=== PATIENT | female | born 1960 | race Caucasian/White ===

== ENCOUNTER 2017-08-06 12:07 | Emergency (ER) | payer OTHER ==
[~2017-08-06] VITALS: Ht 162.6 cm; Wt 66.0 kg
[~2017-08-06 12:07] MED LIST: TURM450C PO; VITA100T65 PO
[2017-08-06 12:08] VITALS: BP 165/102; PULSE 107; RESP 20; TEMP 98.2; O2SAT 98
[2017-08-06] MEDS ORDERED: ARGI500T PO (12:30)
[2017-08-06] MEDS ORDERED: DIAZ5 PO (12:53)
--- NOTE | 2017-08-06 12:54 | PD ---
HPI Chief Complaint: Pain: Acute or Chronic Time Seen by Provider: 12:40 Travel History International Travel<30 days: No Contact w/Intl Traveler<30days: No Traveled to known affect area: No History of Present Illness HPI Is a 57 year-old woman presents to the emergency department complaining of left shoulder pain. She states over the past 2 days or so she's got pain and tightness in her left shoulder, left trap, is unable to lift her arm above her head. She's recently completed treatment for breast cancer on the left side with a left axillary node dissection, and chemotherapy through a port in her left chest. She completed her last chemotherapy therapy several months ago and is due to be released. She otherwise has been feeling generally well and healthy. She denies having previous similar problems. No recent injury. No other complaints. History Past Medical History Narrative Medical Breast cancer Spina bifida Tetanus Vaccination: > 5 Years Social History Alcohol Use: No Tobacco Use: Yes (2 PACK DAILY) Allergies-Medications (Allergen,Severity, Reaction): Coded Allergies: No Known Allergies (Verified Adverse Reaction, Unknown, 08/06/17) Reported Meds & Prescriptions Reported Meds & Active Scripts Active Reported Arginine 500 Mg Tab 500 Mg PO DAILY Review of Systems Except as stated in HPI: all other systems reviewed are Neg Physical Exam Narrative GENERAL: The 57 year-old woman, no acute distress. SKIN: Warm and dry. CARDIOVASCULAR: Warm and well perfused. RESPIRATORY: Normal rate and effort. MUSCULOSKELETAL: Grossly normal appearance of the left shoulder. There is no obvious swelling deformity or ecchymosis or bruising. She has pain with any range of motion of the above 80 and forward flexion or abduction. She has pain with passive range of motion as well. Distal strength is full and equal. Distal extremities neurovascularly intact. She is a lot of tenderness and pain to palpation of the left trapezius. NEUROLOGICAL: Awake and alert. No gross deficits. Data Data Last Documented VS Vital Signs Date Time Temp Pulse Resp B/P (MAP) Pulse Ox O2 Delivery O2 Flow Rate FiO2 08/06/17 12:08 98.2 107 20 165/102 (123) 98 Room Air Orders Orders Chest, Single Ap (08/06/17 ) Shoulder, Complete (>2vws) (08/06/17 ) MDM Medical Decision Making Medical Screen Exam Complete: Yes Emergency Medical Condition: Yes Differential Diagnosis Rotator cuff injury, trapezius strain or sprain, occult trauma, other Narrative Course Medical decision making INITIAL cause a 57 year-old woman presents to the emergency department complaining of left shoulder pain. She is a lot of tenderness in her left trap and seems to have more muscle spasm related pain. She's had lymph nodes taken out of the left axilla and has a left port. I don't think the poor tachycardia causing this but we will check an x-ray of the chest just to make sure that the ports in the proper position, we'll also check x-ray of the shoulder for any occult trauma. Likely treatment for muscle spasm. Diagnosis Primary Impression: Muscle spasm of left shoulder Additional Instructions: Use Valium sparingly as needed for muscle spasm. Use caution as it can cause drowsiness increased risk of falls. Follow up with her primary doctor for not completely well in one week. Return to the emergency department for any new or worsening symptoms. Med/Other Pt SpecificInfo: Prescription(s) given Scripts Diazepam (Valium) 5 Mg Tab 5 MG PO TID Y for MUSCLE SPASM, #15 TAB 0 Refills Prov: Mehran Batista MD 08/06/17 Disposition: 01 DISCHARGE HOME Condition: Stable Mehran Batista MD Aug 06, 2017 12:53
--- NOTE | 2017-08-06 13:57 | RADRPT ---
EXAM DATE/TIME: 08/06/2017 13:16 [facility] COMPARISON: No previous studies available for comparison. INDICATIONS : Left shoulder pain no known injury, unable to rais arm. MEDICAL HISTORY : Carcinoma, breast. SURGICAL HISTORY : Infusaport left, right lung mass ENCOUNTER: Initial ACUITY: 1 day PAIN SCORE: 8/10 LOCATION: Left shoulder FINDINGS: Multiple view examination of the left shoulder demonstrates no evidence of fracture or dislocation. The glenohumeral and acromioclavicular joints are maintained. There is normal range of motion betwee n internal and external rotation. Bony mineralization is normal. CONCLUSION: Unremarkable examination of the left shoulder. Left subclavian [id number]. Mehran Quan MD on August 06, 2017 at 13:55 Board Certified Radiologist. This report was verified electronically.
--- NOTE | 2017-08-06 14:04 | RADRPT ---
EXAM DATE/TIME: 08/06/2017 13:21 [facility] COMPARISON: CHEST EXPIRATION ONLY, June 04, 2016, 13:59. INDICATIONS : Shortness of breath. MEDICAL HISTORY : Carcinoma, breast. Right lung mass, SURGICAL HISTORY : Infusaport left, ENCOUNTER: Initial ACUITY: 2 days PAIN SCORE: 5/10 LOCATION: Left chest FINDINGS: A single portable frontal view the chest shows a nodular density within the right lung apex. This is similar to the prior study. The remaining lungs are clear. No infiltrate or effusion. No pneumothorax . Power port overlies the left chest. Heart is normal in size. CONCLUSION: 1. Unchanged right apical pulmonary mass. 2. No acute infiltrate or effusion. Delgado Lynn Jr., MD on August 06, 2017 at 13:56 Board Certified Radiologist. This report was verified electronically.
== END 2017-08-06 13:58 | disposition home or self-care (01) ==
LOC: NEPK 12:07
DX: M62.838 Other muscle spasm (principal); M25.512 Pain in left shoulder; F17.210 Nicotine dependence, cigarettes, uncomplicated; Z85.3 Personal history of malignant neoplasm of breast
CPT/HCPCS: 71010; 73030; 99284